=== PATIENT | female | born 2000 | race Hispanic/Latino ===

== ENCOUNTER 2018-08-02 10:13 | Emergency (ER) | payer BC, OTHER ==
[2018-08-02 11:19] LABS: Pregnancy Test - Urine (BHCG) Negative (Negative); Pregu Control Background? CLEAR/WHITE (CLR/WHITE); Pregu Control Bar Appear? YES (CONTROL BAR); Specific Gravity 1.024 (1.002-1.036)
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
== END 2018-08-02 12:12 | disposition home or self-care (01) ==
LOC: ERS 10:13
DX: S40.011A Contusion of right shoulder, initial encounter (principal); Y04.0XXA Assault by unarmed brawl or fight, initial encounter
CPT/HCPCS: 81025